=== PATIENT | male | born 1955 | race Caucasian/White ===

== ENCOUNTER 2017-01-15 15:28 | Emergency (ER) | payer BC ==
[~2017-01-15] VITALS: Ht 188 cm; Wt 111.3 kg
[2017-01-15 15:39] VITALS: TEMP 36.4; Ht 188 cm; Wt 111.3 kg
--- NOTE | 2017-01-15 15:59 | EMERGENCY ROOM VISIT NOTE ---
History Report prepared by Ciro: Gurpreet Ma Under the Supervision of: Dr. Jen Mcadams D.O. First contact with patient: 15:47 Chief Complaint: DIZZY Stated Complaint: DIZZINESS, LIGHT-HEADED, CANNOT STAND Nursing Triage Summary: Dizziness - improves with eyes closed, states vision is blurred when both eyes are open Unsteady gait Denies headache, chest pain, shortness of breath History of Present Illness The patient is a 61 year old male who presents to the Emergency Room with complaints of persistent visual difficulties that started around 2 hours ago. He says that he was eating lunch around 2 and a half hours ago, and ate a waffle with a lot of syrup. He states that after he finished eating, he looked down at his phone and suddenly his vision got really blurry. He notes that if he looks with both eyes, his vision is very off, but if he opens one eye, his vision is fine, but the eyes switch back and forth. The patient adds that he has been nauseous but is not nauseous anymore. She states that since he is unable to focus with his vision and he feels off-balance, he has been a bit dizzy and lightheaded. The patient notes that he has not had anything like this before. Per the patient's , the patient became red when his symptoms came on , but the redness quickly went away. The patient has been saying that he has to lay down and close his eyes to feel better. The patient denies anything unusual the past few days. He also denies any pain, headaches, shortness of breath, numbness, tingling, focal weakness, recent fevers, cough, cold symptoms, leg swelling, urinary symptoms or recent medication changes, activity changes, or bowel changes. He notes no chronic medical problems. Source of History: patient, spouse/significant other Onset: 2 hours ago Position: eye (visual difficulties) Quality: other (blurry) Timing: other (persistent) Modifying Factors (Relieving): other (laying down, closing eyes) Associated Symptoms: + nausea (went away), No fevers, No headache, No cough , No SOB, No urinary symptoms, No numbness (or tingling) Note: Associated symptoms: Unable to focus with vision, dizzy, lightheaded. Became red when symptoms came on. Denies any pain, leg swelling. Review of Systems See HPI for pertinent positives & negatives. A total of 10 systems reviewed and were otherwise negative. Past Medical & Surgical Medical Problems: (1) No chronic diseases present Family History Diabetes mellitus Hypertension Social History Smoking Status: Never Smoker Marital Status: Housing Status: lives with family Current/Historical Medications Scheduled Apple Cider Vinegar-Green Tea- (Apple Cider Vinegar Plus), 1 TAB PO DAILY Ascorbic Acid (Vitamin C), 500 MG PO DIRECTED Aspirin (Aspirin Ec), 81 MG PO Q2D Multivitamin (Multivitamin), 1 TAB PO DAILY Ondasetron Odt (Zofran Odt), 4 MG SL Q8 Scheduled PRN Meclizine Hcl (Meclizine Hcl), 25 MG PO TID PRN for Dizziness Allergies Coded Allergies: Iodine (Unverified Allergy, Unknown, SWELLING, 01/15/17) Uncoded Allergies: NOVACAINE (Allergy, Unknown, SWELLING AT INJECTION SITE, 01/15/17) Physical Exam Vital Signs Date Time Temp Pulse Resp B/P (MAP) Pulse Ox O2 Delivery O2 Flow Rate FiO2 01/15/17 21:33 76 157/93 98 01/15/17 19:13 83 18 92 01/15/17 19:12 157/93 01/15/17 19:09 80 01/15/17 18:58 83 16 93 01/15/17 18:43 82 14 93 01/15/17 18:28 78 14 95 01/15/17 18:13 82 18 137/97 97 Room Air 01/15/17 18:13 81 12 137/97 97 01/15/17 16:58 72 14 96 01/15/17 16:50 150/94 01/15/17 16:49 71 18 150/94 97 Room Air 01/15/17 16:43 75 24 93 01/15/17 16:28 72 15 93 01/15/17 16:17 175/102 01/15/17 16:16 74 18 175/102 95 Room Air 01/15/17 16:00 75 22 182/125 98 Room Air 01/15/17 15:59 81 01/15/17 15:58 77 14 01/15/17 15:55 182/125 01/15/17 15:47 200/97 01/15/17 15:46 83 20 200/97 01/15/17 15:39 36.4 76 20 189/98 98 Room Air Physical Exam GENERAL: alert, ill appearing, well nourished, no distress, non-toxic EYE EXAM: normal conjunctiva, PERRL and EOM's grossly intact OROPHARYNX: no exudate, no erythema, lips, buccal mucosa, and tongue normal and mucous membranes are moist NECK: supple, no nuchal rigidity, no adenopathy, non-tender LUNGS: Clear to auscultation. Normal chest wall mechanics HEART: no murmurs, S1 normal and S2 normal ABDOMEN: abdomen soft, non-tender, normo-active bowel sounds, no masses, no rebound or guarding. BACK: Back is symmetrical on inspection and there is no deformity, no midline tenderness, no CVA tenderness. SKIN: no rashes and no bruising UPPER EXTREMITIES: upper extremities are grossly normal. LOWER EXTREMITIES: No pitting edema. NEURO EXAM: Normal sensorium, cranial nerves II-XII grossly intact, normal speech, no gross weakness of arms, no gross weakness of legs. Unable to perform finger to nose due to patient's symptoms. Medical Decision & Procedures ER Provider Diagnostic Interpretation: Radiology results have been interpreted by the radiologist and reviewed by me. HEAD CT NONCONTRAST CT DOSE: 614.27 mGy.cm HISTORY: dizziness, htn TECHNIQUE: Multiaxial CT images of the head were performed without the use of intravenous contrast. Automated exposure control was utilized for this study. A dose lowering technique was utilized adhering to the principles of ALARA. Comparison: None. Findings: The paranasal sinuses and mastoid air cells are clear. The calvarium and skull base are intact. The ventricles and sulci are within normal limits. There is no mass, hematoma, midline shift, or acute infarct. Calcified right temporal scalp nodule. This is likely benign. Impression: No acute intracranial abnormality. Electronically signed by: Kolby Balbuena M.D. 01/15/2017 4:19 PM Dictated Date/Time: 01/15/2017 4:14 PM CHEST ONE VIEW PORTABLE HISTORY: dizziness, htn COMPARISON: None. FINDINGS: The lungs are clear. Cardiac silhouette is normal in size. No pleural effusions. No pneumothorax. IMPRESSION: No acute process. Electronically signed by: Kolby Balbuena M.D. 01/15/2017 4:59 PM Dictated Date/Time: 01/15/2017 4:57 PM Brain MRA HISTORY: dizziness, vision changes TECHNIQUE: 3-D [id number] MRA of the brain was performed without contrast. COMPARISON STUDY: Head CT 01/15/2017. FINDINGS: Visualized intracranial internal carotid arteries, distal vertebral arteries, and basilar artery are patent. 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 The bilateral behavioral instructor are fed primarily through the posterior communicating arteries. The remaining bilateral behavioral instructor, bilateral MCAs, and bilateral ACAs are widely patent with no significant stenosis, occlusion, or aneurysm. IMPRESSION: No significant stenosis, occlusion, or aneurysm within the [place]. 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 Electronically signed by: Kolby Balbuena M.D. 01/15/2017 5:43 PM Dictated Date/Time: 01/15/2017 5:37 PM Brain MRI WITH AND WITHOUT CONTRAST HISTORY: dizziness changes TECHNIQUE: Multiplanar multisequence MRI of the brain was performed both before and after the intravenous administration of contrast. COMPARISON STUDY: Head CT 01/15/2017. FINDINGS: There is no mass, hematoma, midline shift, or acute infarct. The mastoid air cells are clear. The ventricles and sulci are within normal limits. Scattered foci of T2 hyperintensity seen within the periventricular and subcortical white matter are nonspecific but suggestive of mild microvascular ischemic changes. The major vascular flow voids at the skull base are well-maintained. Retention cysts seen within the bilateral maxilla sinuses. Circumscribed 1.6 cm nodule within the right scalp. This is likely benign. No abnormal enhancement within the brain. IMPRESSION: No acute intracranial abnormality. A few foci of T2 hyperintensity seen within the periventricular and subcortical white matter are nonspecific but favor mild microvascular ischemic change. Electronically signed by: Kolby Balbuena M.D. 01/15/2017 6:26 PM Dictated Date/Time: 01/15/2017 6:20 PM Laboratory Results 01/15/17 15:55 Red Blood Count 5.38, Mean Corpuscular Volume 91.4, Mean Corpuscular Hemoglobin 31.2, Mean Corpuscular Hemoglobin Concent 34.1, Mean Platelet Volume 10.4, Neutrophils (%) (Auto) 74.9, Lymphocytes (%) (Auto) 16.6, Monocytes (%) (Auto) 6.5, Eosinophils (%) (Auto) 1.3, Basophils (%) (Auto) 0.4, Neutrophils # (Auto) 6.66, Lymphocytes # (Auto) 1.48, Monocytes # (Auto) 0.58, Eosinophils # (Auto) 0.12, Basophils # (Auto) 0.04 01/15/17 15:55 01/15/17 18:14 Test 01/15/17 15:47 01/15/17 15:55 01/15/17 18:14 01/15/17 19:34 Bedside Glucose 137 mg/dl (70-99) White Blood Count 8.91 K/uL (4.8-10.8) Red Blood Count 5.38 M/uL (4.7-6.1) Hemoglobin 16.8 g/dL (14.0-18.0) Hematocrit 49.2 % (42-52) Mean Corpuscular Volume 91.4 fL (80-100) Mean Corpuscular Hemoglobin 31.2 pg (25-34) Mean Corpuscular Hemoglobin Concent 34.1 g/dl (32-36) Platelet Count 157 K/uL (130-400) Mean Platelet Volume 10.4 fL (7.4-10.4) Neutrophils (%) (Auto) 74.9 % Lymphocytes (%) (Auto) 16.6 % Monocytes (%) (Auto) 6.5 % Eosinophils (%) (Auto) 1.3 % Basophils (%) (Auto) 0.4 % Neutrophils # (Auto) 6.66 K/uL (1.4-6.5) Lymphocytes # (Auto) 1.48 K/uL (1.2-3.4) Monocytes # (Auto) 0.58 K/uL (0.11-0.59) Eosinophils # (Auto) 0.12 K/uL (0-0.5) Basophils # (Auto) 0.04 K/uL (0-0.2) RDW Standard Deviation 44.5 fL (36.4-46.3) RDW Coefficient of Variation 13.4 % (11.5-14.5) Immature Granulocyte % (Auto) 0.3 % Immature Granulocyte # (Auto) 0.03 K/uL (0.00-0.02) Anion Gap 7.0 mmol/L (3-11) Est Creatinine Clear Calc Drug Dose 87.6 ml/min Estimated GFR () 76.5 Estimated GFR (Non- 66.0 BUN/Creatinine Ratio 12.5 (10-20) Calcium Level 8.9 mg/dl (8.5-10.1) Total Bilirubin 0.7 mg/dl (0.2-1) Alanine Aminotransferase (ALT/SGPT) 38 U/L (12-78) Alkaline Phosphatase 30 U/L (45-117) Troponin I < 0.015 ng/ml (0-0.045) Total Protein 8.3 gm/dl (6.4-8.2) Albumin 4.2 gm/dl (3.4-5.0) Globulin 4.1 gm/dl (2.5-4.0) Albumin/Globulin Ratio 1.0 (0.9-2) Thyroid Stimulating Hormone (TSH) 2.040 uIu/ml (0.300-4.500) Magnesium Level 2.3 mg/dl (1.8-2.4) Aspartate Amino Transf (AST/SGOT) 18 U/L (15-37) Urine Color YELLOW Urine Appearance CLEAR (CLEAR) Urine pH 5.5 (4.5-7.5) Urine Specific [place]oss 1.027 (1.000-1.030) Urine Protein NEG (NEG) Urine Glucose (UA) NEG (NEG) Urine Ketones NEG (NEG) Urine Occult Blood NEG (NEG) Urine Nitrite NEG (NEG) Urine Bilirubin NEG (NEG) Urine Urobilinogen NEG (NEG) Urine Leukocyte Esterase NEG (NEG) Test 01/15/17 21:04 Bedside Troponin I < 0.030 ng/ml (0-0.045) Laboratory results per my review. Medications Administered Medications (Trade) Dose Ordered Sig/Felicita Route Start Time Stop Time Status Last Admin Dose Admin Ondansetron HCl (Zofran Inj) 4 mg NOW STAT IV 01/15/17 16:41 01/15/17 16:42 DC 01/15/17 16:48 4 MG Meclizine HCl (Antivert Tab) 25 mg NOW STAT PO 01/15/17 18:16 01/15/17 18:18 DC 01/15/17 18:47 25 MG ECG Indication: other (dizzy) Rate (beats per minute): 73 Rhythm: normal sinus Findings: no acute ischemic change, no ectopy, other (normal axis, normal intervals) ED Course 1548: The patient was evaluated in room A1. A complete history and physical exam was performed. 1640: Upon repeat exam, the patient is still lightheaded. The nausea has recurred, his vision is worsening. HINTS exam was negative. 164: Ordered Zofran Inj 4 mg IV. 1717: I reevaluated and updated the patient. 1815: Ordered Antivert Tab 25 mg PO. 1837: I reevaluated and updated the patient. He is still having waxing and waning blurry vision, lightheadedness, and nausea. He notes that 2 weeks ago he had bad sinus drainage. 2018: I reevaluated the patient and he is looking good. Medical Decision Differential diagnosis includes etiologies such as benign positional vertigo, dehydration, hypovolemia, anemia, tumor, infection, hypoglycemia, electrolyte abnormalities, cardiac sources, intracerebral event, toxicologic, neurologic, as well as others were entertained. Patient's initial presentation not consistent with benign positional vertigo. Several other pathologies were considered. Head CT negative been given patient' s intermittent and recurring symptoms, patient sent for MRI. No evidence of acute CVA, intracranial hemorrhage, cerebellar process, central venous sinus thrombus, infectious etiology, or dissection noted. Given negative central evaluation, patient's improvement with meclizine, more likely peripheral etiology of vertigo. Patient's labs reassuring, vital signs stable throughout area did discussed with patient close follow up with family doctor, use of meclizine, symptoms to watch and return for, recheck of patient's blood pressure was family doctor, he verbalized understanding was agreeable plan. At time of discharge patient was well appearing, tolerating by mouth, and ambulated with a steady gait with no recurrent symptoms. Medication Reconcilliation Current Medication List: was personally reviewed by me Blood Pressure Screening Patient's blood pressure: Elevated blood pressure Impression Primary Impression: Dizziness Additional Impressions: Nausea Vision changes HTN (hypertension) Scribe Attestation The scribe's documentation has been prepared under my direction and personally reviewed by me in its entirety. I confirm that the note above accurately reflects all work, treatment, procedures, and medical decision making performed by me. Departure Information Dispostion Home / Self-Care Prescriptions Meclizine Hcl (MECLIZINE HCL) 25 Mg Tab 25 MG PO TID Y for Dizziness, #20 TAB Prov: Jen Mcadams, DO 01/15/17 Ondasetron Odt (ZOFRAN ODT) 4 Mg Tab 4 MG SL Q8 for Nausea, #20 TAB Prov: Jen Mcadams, DO 01/15/17 Patient Instructions My [facility] Additional Instructions Please follow up with your family doctor. You may use the dizzy medication as prescribed. You may use a nausea medication as prescribed. Please avoid any strenuous activity, heavy lifting, or contact sports until you're seen and evaluated by your family doctor. Please make sure you're drinking plenty of water. If you develop any recurrent episodes of unsteady gait/dizziness/ lightheadedness, develop vomiting, vision changes, ringing in the ears, fevers, chest pain or palpitations, trouble breathing, or you have any other new concerns, please return the emergency room. Problem Qualifiers Additional Impressions: HTN (hypertension) Hypertension type: unspecified Qualified Codes: I10 - Essential (primary) hypertension
[2017-01-15 16:07] LABS: BASO % 0.4 %; BASO ABS # 0.04 K/uL (0-0.2); COMPLETE YES; EOS % 1.3 %; HEMATOCRIT 49.2 % (42-52); IG% 0.3 %; LYMPH % 16.6 %; LYMPH ABS # 1.48 K/uL (1.2-3.4); MEAN CELL VOLUME 91.4 fL (80-100); MEAN CORPUSCULAR HEMOGLOBIN 31.2 pg (25-34); MEAN CORPUSCULAR HGB CONC 34.1 g/dl (32-36); MEAN PLATELET VOLUME 10.4 fL (7.4-10.4); MONO % 6.5 %; NEUT % 74.9 %; PLATELET COUNT 157 K/uL (130-400); RED BLOOD COUNT 5.38 M/uL (4.7-6.1); WHITE BLOOD COUNT 8.91 K/uL (4.8-10.8)
[2017-01-15] MEDS ORDERED: ASCA500 PO (16:13)
[2017-01-15] MEDS ORDERED: MULT-506 PO (16:13)
[2017-01-15] MEDS ORDERED: APPLTAB2 PO (16:13)
[2017-01-15] MEDS ORDERED: ASPI81TA28 PO (16:13)
--- NOTE | 2017-01-15 16:20 | DIAGNOSTIC IMAGING REPORT ---
HEAD CT NONCONTRAST CT DOSE: 614.27 mGy.cm HISTORY: dizziness, htn TECHNIQUE: Multiaxial CT images of the head were performed without the use of intravenous contrast. Automated exposure control was utilized for this study. A dose lowering technique was utilized adhering to the principles of ALARA. Comparison: None. Findings: The paranasal sinuses and mastoid air cells are clear. The calvarium and skull base are intact. The ventricles and sulci are within normal limits. There is no mass, hematoma, midline shift, or acute infarct. Calcified right temporal scalp nodule. This is likely benign. Impression: No acute intracranial abnormality. Electronically signed by: Kolby Balbuena M.D. 01/15/2017 4:19 PM Dictated Date/Time: 01/15/2017 4:14 PM
[2017-01-15] MEDS ORDERED: ONDANSETRON INJ 2 MG/ML 2 ML VIAL IV STA (16:41)
[2017-01-15 16:54] LABS: ALKALINE PHOSPHATASE 30 U/L (45-117); ALT/SGPT 38 U/L (12-78); BLOOD UREA NITROGEN 15 mg/dl (7-18); BUN/CREATININE RATIO 12.5 (10-20); CALCIUM 8.9 mg/dl (8.5-10.1); CARBON DIOXIDE 29 mmol/L (21-32); CHLORIDE 103 mmol/L (98-107); CREATININE 1.19 mg/dl (0.60-1.40); GLUCOSE 134 mg/dl (70-99); SODIUM 139 mmol/L (136-145)
--- NOTE | 2017-01-15 17:00 | DIAGNOSTIC IMAGING REPORT ---
CHEST ONE VIEW PORTABLE HISTORY: dizziness, htn COMPARISON: None. FINDINGS: The lungs are clear. Cardiac silhouette is normal in size. No pleural effusions. No pneumothorax. IMPRESSION: No acute process. Electronically signed by: Kolby Balbeuna M.D. 01/15/2017 4:59 PM Dictated Date/Time: 01/15/2017 4:57 PM
--- NOTE | 2017-01-15 17:44 | DIAGNOSTIC IMAGING REPORT ---
Brain MRA HISTORY: dizziness, vision changes TECHNIQUE: 3-D [id number] MRA of the brain was performed without contrast. COMPARISON STUDY: Head CT 01/15/2017. FINDINGS: Visualized intracranial internal carotid arteries, distal vertebral arteries, and basilar artery are patent. 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 The bilateral captain airline pilot are fed primarily through the posterior communicating arteries. The remaining bilateral captain airline pilot, bilateral MCAs, and bilateral ACAs are widely patent with no significant stenosis, occlusion, or aneurysm. IMPRESSION: No significant stenosis, occlusion, or aneurysm within the [place]. 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 Electronically signed by: Kolby Balbuena M.D. 01/15/2017 5:43 PM Dictated Date/Time: 01/15/2017 5:37 PM
[2017-01-15] MEDS ORDERED: GADAVIST IV PRN (18:00)
[2017-01-15] MEDS ORDERED: MECLIZINE HCL 25 MG TAB PO STA (18:16)
--- NOTE | 2017-01-15 18:27 | DIAGNOSTIC IMAGING REPORT ---
Brain MRI WITH AND WITHOUT CONTRAST HISTORY: dizziness changes TECHNIQUE: Multiplanar multisequence MRI of the brain was performed both before and after the intravenous administration of contrast. COMPARISON STUDY: Head CT 01/15/2017. FINDINGS: There is no mass, hematoma, midline shift, or acute infarct. The mastoid air cells are clear. The ventricles and sulci are within normal limits. Scattered foci of T2 hyperintensity seen within the periventricular and subcortical white matter are nonspecific but suggestive of mild microvascular ischemic changes. The major vascular flow voids at the skull base are well-maintained. Retention cysts seen within the bilateral maxilla sinuses. Circumscribed 1.6 cm nodule within the right scalp. This is likely benign. No abnormal enhancement within the brain. IMPRESSION: No acute intracranial abnormality. A few foci of T2 hyperintensity seen within the periventricular and subcortical white matter are nonspecific but favor mild microvascular ischemic change. Electronically signed by: Kolby Balbuena M.D. 01/15/2017 6:26 PM Dictated Date/Time: 01/15/2017 6:20 PM
[2017-01-15 19:00] LABS: POTASSIUM 3.8 mmol/L (3.5-5.1)
[2017-01-15 19:06] LABS: MAGNESIUM 2.3 mg/dl (1.8-2.4)
[2017-01-15 19:59] LABS: URINE APPEARANCE CLEAR (CLEAR); URINE BILIRUBIN NEG (NEG); URINE COLOR YELLOW; URINE NITRITE NEG (NEG); URINE PH 5.5 (4.5-7.5); URINE SPECIFIC GRAVITY 1.027 (1.000-1.030); UROBILINOGEN NEG (NEG); ZZUR CULT IF INDIC CLEAN CATCH NO
[2017-01-15 20:04] LABS: MANUAL MICROSCOPIC REQUIRED? NO; REVIEW REQ? NO
[2017-01-15] MEDS ORDERED: ONDA4TAB10 SL (20:54)
[2017-01-15] MEDS ORDERED: MECL1TAB42 PO (20:54)
[2017-01-15 21:33] VITALS: BP 157/93; PULSE 76; O2SAT 98
== END 2017-01-15 21:34 | disposition home or self-care (01) ==
LOC: C.EDB 15:29 → C.EDA 21:34
DX: R42 Dizziness and giddiness (principal); R11.0 Nausea; H53.8 Other visual disturbances; I10 Essential (primary) hypertension; Z79.82 Long term (current) use of aspirin; Z83.3 Family history of diabetes mellitus; Z82.49 Family history of ischemic heart disease and other diseases of the circulatory system